=== PATIENT | male | born 2000 | race Caucasian/White ===

== ENCOUNTER 2022-04-30 20:45 | Emergency (ER) | payer OTHER, SELFPAY ==
[2022-04-30] MEDS ORDERED: Boostrix 0.5 ML (Tdap) VIAL ONE (21:45)
[2022-04-30] MEDS ORDERED: Lidocaine 1% PF 5 ML VIAL ONE ×2 (22:18)
[2022-04-30] MEDS ORDERED: Bacitracin 1 PK ONE (22:45)
== END 2022-04-30 22:57 | disposition home or self-care (01) ==
LOC: ERS 20:45
DX: S61.411A Laceration without foreign body of right hand, initial encounter (principal); X58.XXXA Exposure to other specified factors, initial encounter
CPT/HCPCS: 12002; 90471; 90715